=== PATIENT | male | born 2000 | race Caucasian/White ===

== ENCOUNTER 2020-01-08 15:13 | Emergency (ER) | payer OTHER ==
[~2020-01-08] VITALS: Ht 193 cm; Wt 107.8 kg
[2020-01-08] MEDS ORDERED: FLUORESCEIN OPHTH 1 MG STRIP OU ONE (16:30)
[2020-01-08] MEDS ORDERED: TETRACAINE 0.5% OPHTH SOLN 4ML OU ONE (16:30)
[2020-01-08 16:51] VITALS: BP 133/74
== END 2020-01-08 16:52 | disposition home or self-care (01) ==
LOC: M ED 15:13
DX: H02.843 Edema of right eye, unspecified eyelid (principal)

== ENCOUNTER 2020-01-17 20:47 | Emergency (ER) | payer OTHER ==
[~2020-01-17] VITALS: Ht 193 cm; Wt 104.5 kg
[2020-01-17] MEDS ORDERED: LIDOCAINE W/EPINEPHRINE 1% 20ML VIAL SC ONE (23:45)
[2020-01-17] MEDS ORDERED: BACTRIM 160MG/800MG DS TAB PO ONE (23:45)
[2020-01-18] MEDS ORDERED: BACT800T5 PO (00:18)
[2020-01-18 00:28] VITALS: BP 139/85
== END 2020-01-18 00:32 | disposition home or self-care (01) ==
LOC: M ED 20:47
DX: S91.312A Laceration without foreign body, left foot, initial encounter (principal); W26.8XXA Contact with other sharp object(s), not elsewhere classified, initial encounter; Y92.838 Other recreation area as the place of occurrence of the external cause; Y93.89 Activity, other specified; Y99.8 Other external cause status